=== PATIENT | male | born 1985 | race Caucasian/White ===

== ENCOUNTER 2017-01-14 20:33 | Emergency (ER) | payer OTHER, SELFPAY ==
[~2017-01-14] VITALS: Ht 170.2 cm; Wt 71.9 kg
[~2017-01-14 20:33] MED LIST: ALPR0.5T3 PO; HYDR-4274 PO; SUBO12MI SL; XANA2TAB2 PO
[2017-01-14 20:34] VITALS: BP 137/83
[2017-01-14] MEDS ORDERED: IBUP200C PO (20:57)
[2017-01-14] MEDS ORDERED: SUBO8MIS SL (20:57)
[2017-01-14] MEDS ORDERED: NS 1,000 ML IV SCH (21:04)
[2017-01-14] MEDS ORDERED: NS 1,000 ML IV ONE (21:15)
== END 2017-01-14 21:45 | disposition left against medical advice (07) ==
LOC: M ED 21:25
DX: S20.219A Contusion of unspecified front wall of thorax, initial encounter (principal); W50.1XXA Accidental kick by another person, initial encounter; Y92.9 Unspecified place or not applicable; Y93.9 Activity, unspecified; Y99.9 Unspecified external cause status; F17.200 Nicotine dependence, unspecified, uncomplicated; Z79.891 Long term (current) use of opiate analgesic

== ENCOUNTER → 2017-01-15 | Outpatient (CLI) | payer OTHER ==
[~2017-01-15] MED LIST changes: +IBUP200C PO; +SUBO8MIS SL
== END ==
LOC: M OUTALCOH 07:42
PROVIDERS: ATTEND Psychiatry & Neurology Psychiatry
DX: Z13.9 Encounter for screening, unspecified (principal); F11.20 Opioid dependence, uncomplicated

== ENCOUNTER → 2017-01-31 | Outpatient (RCR) | payer MEDICAID ==
[~2017-01-31] MED LIST changes: -HYDR-4274 PO; +HYDR50TA70 PO; -IBUP200C PO; +IBUP200C10 PO
== END | disposition home or self-care (01) ==
LOC: M OUTALCOH 01-27 10:44
PROVIDERS: ATTEND Psychiatry & Neurology Psychiatry
DX: F11.20 Opioid dependence, uncomplicated (principal); F13.20 Sedative, hypnotic or anxiolytic dependence, uncomplicated

== ENCOUNTER 2018-03-09 14:19 | Emergency (ER) | payer OTHER, MEDICAID | END 2018-03-09 16:46 | disposition home or self-care (01) | LOC: M ED 14:19 | DX: K08.89 Other specified disorders of teeth and supporting structures (principal); F17.200 Nicotine dependence, unspecified, uncomplicated; Z79.899 Other long term (current) drug therapy; Z79.2 Long term (current) use of antibiotics | CPT/HCPCS: 99282 ==

== ENCOUNTER 2023-02-10 12:57 | Emergency (ER) | payer OTHER ==
[~2023-02-10] VITALS: Ht 170.2 cm; Wt 77.3 kg
[2023-02-10 12:57] VITALS: TEMP 98.7
[~2023-02-10 12:57] MED LIST changes: +AMOX/K; -IBUP200C10 PO; +IBUP200C25 PO; +NAPR-837 PO
[2023-02-10] MEDS ORDERED: BUPR1SUB5 SL (13:08)
[2023-02-10 14:14] LABS: HEMATOCRIT 48.6 % (42.0-52.0); HEMOGLOBIN 16.8 g/dl (13.5-17.5); MEAN CORPUSCULAR HEMOGLOBIN 32.9 pg (27.0-33.0); MEAN CORPUSCULAR HGB CONC 34.6 g/dl (32.0-36.5); MEAN CORPUSCULAR VOLUME 95.1 fl (80.0-96.0); RED BLOOD COUNT 5.11 10^6/uL (4.30-6.10); WHITE BLOOD COUNT 5.4 10^3/uL (4.0-10.0)
[2023-02-10] MEDS ORDERED: IBUPROFEN 600MG TAB PO ONE (14:20)
[2023-02-10 14:37] LABS: ETHYL ALCOHOL (ETHANOL) 0.261 % (0.000-0.010)
[2023-02-10 14:38] LABS: ACETAMINOPHEN LEVEL < 2.0 UG/ML (10.0-20.0)
[2023-02-10 14:39] LABS: ALBUMIN 3.9 G/DL (3.2-5.2); ALKALINE PHOSPHATASE 192 U/L (46-116); ALT/SGPT 344 U/L (7.0-40); AST/SGOT 605 U/L (<34); BILIRUBIN,DIRECT 0.4 MG/DL (<0.4); BILIRUBIN,TOTAL 0.8 MG/DL (0.3-1.2); BLOOD UREA NITROGEN 9 MG/DL (9-23); CALCIUM LEVEL 8.5 MG/DL (8.5-10.1); CARBON DIOXIDE LEVEL 32 MMOL/L (20-31); CHLORIDE LEVEL 101 MMOL/L (98-107); CREATININE FOR GFR 0.66 MG/DL (0.70-1.30); GLOMERULAR FILTRATION RATE > 60.0 (>60); GLUCOSE, FASTING 89 MG/DL (60-100); POTASSIUM SERUM 3.8 MMOL/L (3.5-5.1); SALICYLATE LEVEL < 3.0 MG/DL (<30); SODIUM LEVEL 141 MMOL/L (136-145); TOTAL PROTEIN 8.4 G/DL (5.7-8.2)
[2023-02-10 14:43] LABS: THYROID STIMULATING HORMONE 0.203 uIU/ML (0.55-4.78)
[2023-02-10 14:44] LABS: INR 1.07; PROTHROMBIN TIME 14.1 SECONDS (12.5-14.5)
[2023-02-10] MEDS: FOLIC ACID 1MG TAB PO SCH (14:44)
[2023-02-10] MEDS: MULTIVITAMINS/MINERALS THERAP 1 TAB PO SCH (14:44)
[2023-02-10] MEDS: THIAMINE 100 MG TAB PO SCH ×2 (14:44→21:54)
[2023-02-10 14:45] LABS: PARTIAL THROMBOPLASTIN TIME 29.8 SECONDS (24.8-34.2)
[2023-02-10] MEDS: LORazepam 2 MG TAB PO PRN ×3 (14:45→23:32)
[2023-02-10 15:26] LABS: AMPHETAMINES LEVEL URINE NEGATIVE (NEGATIVE); BARBITURATES URINE NEGATIVE (NEGATIVE); CANNABINOIDS URINE NEGATIVE (NEGATIVE); COCAINE METABOLITE URINE NEGATIVE (NEGATIVE); METHADONE URINE NEGATIVE (NEGATIVE); OPIATES URINE NEGATIVE (NEGATIVE); PHENCYCLIDINE URINE NEGATIVE (NEGATIVE)
[2023-02-10 15:27] LABS: BENZODIAZEPINES URINE NEGATIVE (NEGATIVE)
[2023-02-10] MEDS ORDERED: BUPRENORPHINE/NALOXONE 8-2MG SUBLINGUAL TABLET(SUBOXONE) SL STA (21:08)
[2023-02-10] MEDS ORDERED: SUBO8MIS SL (22:49)
[2023-02-10] MEDS ORDERED: B-1100TA2 PO (22:49)
[2023-02-10] MEDS ORDERED: VITMTA PO (22:49)
[2023-02-10] MEDS ORDERED: VITA100093 PO (22:49)
[2023-02-10] MEDS ORDERED: HOME MED LIST COMPLETE! XX SCH (22:50)
[2023-02-11] MEDS ORDERED: OXAZEPAM 15MG CAP PO ONE
[2023-02-11] MEDS: LORazepam 2 MG TAB PO PRN ×5 (00:27→06:52)
[2023-02-11 05:30] VITALS: O2SAT 98
[2023-02-11 06:53] VITALS: BP 137/93
[2023-02-11] MEDS: THIAMINE 100 MG TAB PO SCH (08:55)
[2023-02-11] MEDS: MULTIVITAMINS/MINERALS THERAP 1 TAB PO SCH (08:55)
[2023-02-11] MEDS: FOLIC ACID 1MG TAB PO SCH (08:55)
[2023-02-11] MEDS ORDERED: NICOTINE 21MG/24HR 1 EA TRANSDERMAL TD ONE (08:55)
== END 2023-02-11 10:19 | disposition left against medical advice (07) ==
LOC: M ED 12:57
DX: F10.239 Alcohol dependence with withdrawal, unspecified (principal); F41.9 Anxiety disorder, unspecified; F32.A Depression, unspecified; R51.9 Headache, unspecified; Z79.810 Long term (current) use of selective estrogen receptor modulators (SERMs); Z79.899 Other long term (current) drug therapy; Z53.9 Procedure and treatment not carried out, unspecified reason

== ENCOUNTER 2023-02-12 12:04 | Emergency (ER) | payer OTHER ==
[~2023-02-12] VITALS: Ht 170.2 cm; Wt 72.3 kg
[~2023-02-12 12:04] MED LIST changes: +B-1100TA2 PO; +BUPR1SUB5 SL; +VITA100093 PO; +VITMTA PO
[2023-02-12] MEDS ORDERED: MED REC IN PROGRESS XX SCH (12:55)
[2023-02-12] MEDS ORDERED: HOME MED LIST COMPLETE! XX SCH (13:15)
[2023-02-12] MEDS ORDERED: NICOTINE 21MG/24HR 1 EA TRANSDERMAL TD ONE (13:35)
[2023-02-12 13:44] LABS: BASO % 0.7 % (0.0-1.0); EOS % 0.5 % (0.0-3.0); HEMATOCRIT 49.7 % (42.0-52.0); HEMOGLOBIN 16.8 g/dl (13.5-17.5); LYMPH # 1.4 10^3/uL (1.5-5.0); LYMPH % 26.1 % (24.0-44.0); MEAN CORPUSCULAR HEMOGLOBIN 32.1 pg (27.0-33.0); MEAN CORPUSCULAR HGB CONC 33.8 g/dl (32.0-36.5); MEAN CORPUSCULAR VOLUME 94.8 fl (80.0-96.0); MONO # 0.7 10^3/uL (0.0-0.8); MONO % 11.9 % (2.0-8.0); NEUTROPHILS # 3.3 10^3/uL (1.5-8.5); NEUTROPHILS % 60.6 % (36.0-66.0); RED BLOOD COUNT 5.24 10^6/uL (4.30-6.10); WHITE BLOOD COUNT 5.5 10^3/uL (4.0-10.0)
[2023-02-12 14:09] LABS: AMPHETAMINES LEVEL URINE NEGATIVE (NEGATIVE); BARBITURATES URINE NEGATIVE (NEGATIVE); BENZODIAZEPINES URINE NEGATIVE (NEGATIVE); CANNABINOIDS URINE NEGATIVE (NEGATIVE); COCAINE METABOLITE URINE NEGATIVE (NEGATIVE); METHADONE URINE NEGATIVE (NEGATIVE); OPIATES URINE NEGATIVE (NEGATIVE); PHENCYCLIDINE URINE NEGATIVE (NEGATIVE)
[2023-02-12 14:10] LABS: ACETAMINOPHEN LEVEL < 2.0 UG/ML (10.0-20.0)
[2023-02-12 14:11] LABS: SALICYLATE LEVEL < 3.0 MG/DL (<30)
[2023-02-12 14:32] LABS: ALBUMIN 4.2 G/DL (3.2-5.2); ALKALINE PHOSPHATASE 221 U/L (46-116); ALT/SGPT 402 U/L (7.0-40); AST/SGOT 733 U/L (<34); BILIRUBIN,DIRECT 0.5 MG/DL (<0.4); BLOOD UREA NITROGEN 15 MG/DL (9-23); CALCIUM LEVEL 9.4 MG/DL (8.5-10.1); CARBON DIOXIDE LEVEL 29 MMOL/L (20-31); CHLORIDE LEVEL 105 MMOL/L (98-107); CREATININE FOR GFR 0.84 MG/DL (0.70-1.30); ETHYL ALCOHOL (ETHANOL) 0.348 % (0.000-0.010); GLOMERULAR FILTRATION RATE > 60.0 (>60); GLUCOSE, FASTING 115 MG/DL (60-100); POTASSIUM SERUM 4.1 MMOL/L (3.5-5.1); SODIUM LEVEL 143 MMOL/L (136-145); THYROID STIMULATING HORMONE 0.843 uIU/ML (0.55-4.78); TOTAL PROTEIN 8.7 G/DL (5.7-8.2)
[2023-02-12] MEDS: THIAMINE 100 MG TAB PO SCH (21:11)
[2023-02-12] MEDS: LORazepam 2 MG TAB PO PRN ×2 (21:11→22:21)
[2023-02-12] MEDS ORDERED: OXAZEPAM 10MG CAP PO ONE (22:45)
[2023-02-13] MEDS: LORazepam 2 MG TAB PO PRN ×5 (01:22→12:00)
[2023-02-13] MEDS: THIAMINE 100 MG TAB PO SCH (08:59)
[2023-02-13] MEDS ORDERED: FOLIC ACID 1MG TAB PO SCH (09:00)
[2023-02-13] MEDS ORDERED: BUPRENORPHINE/NALOXONE 8-2MG SUBLINGUAL TABLET(SUBOXONE) SL SCH (09:00)
[2023-02-13] MEDS ORDERED: MULTIVITAMINS/MINERALS THERAP 1 TAB PO SCH (09:00)
[2023-02-13 11:19] VITALS: TEMP 97.6
[2023-02-13] MEDS ORDERED: NICOTINE 21MG/24HR 1 EA TRANSDERMAL TD ONE (12:00)
[2023-02-13 12:41] VITALS: BP 156/100; O2SAT 99
== END 2023-02-13 12:44 | disposition short-term general hospital (02) ==
LOC: EDBD 12:04 → M ED 12:04
DX: F10.129 Alcohol abuse with intoxication, unspecified (principal); R00.0 Tachycardia, unspecified; B19.20 Unspecified viral hepatitis C without hepatic coma; F17.200 Nicotine dependence, unspecified, uncomplicated; F12.10 Cannabis abuse, uncomplicated; Z79.810 Long term (current) use of selective estrogen receptor modulators (SERMs); Z79.899 Other long term (current) drug therapy